=== PATIENT | male | born 1980 | race Caucasian/White ===

== ENCOUNTER 2016-06-24 22:20 | Inpatient (IN) | payer MEDICAID ==
[~2016-06-24] VITALS: Ht 165.1 cm; Wt 69.5 kg
[2016-06-24 22:37] VITALS: BP 114/71
[2016-06-24] MEDS ORDERED: ZOLPIDEM TARTRATE 10 MG TABLET PO PRN (22:45)
[2016-06-24] MEDS ORDERED: LORazepam 2 MG TABLET PO PRN (22:45)
[2016-06-24] MEDS ORDERED: HALOPERIDOL 5 MG TABLET PO PRN (22:45)
[2016-06-25] MEDS ORDERED: INFLUENZA VIRUS VACCINE QVS 2016-17 (3YR+)/PF 60 MCG/0.5 ML SYRINGE IM ONE (01:15)
[2016-06-25 08:10] VITALS: BP 110/64
[2016-06-25] MEDS: NICOTINE 21 MG/24 HOUR PATCH TD SCH (08:50)
[2016-06-25 09:31] LABS: BASOPHILS % (AUTO) 0.2 % (0.0-2.0); EOSINOPHILS % (AUTO) 2.3 % (1.0-6.0); HEMATOCRIT 48.6 % (41-53); LYMPHOCYTES # (AUTO) 1.2 K/uL (1.0-4.8); LYMPHOCYTES % (AUTO) 23.7 % (22.0-44.0); MEAN CORPUSCULAR HEMOGLOBIN 30.5 pg (26.0-34.0); MEAN CORPUSCULAR VOLUME 93 fL (80-100); MONOCYTES # (AUTO) 0.4 K/uL (0.1-1.0); MONOCYTES % (AUTO) 7.4 % (2.0-9.0); NEUTROPHILS # (AUTO) 3.4 K/uL (1.8-7.7); NEUTROPHILS % (AUTO) 66.4 % (40.0-70.0); PLATELET COUNT (AUTO) 138 K/uL (150-450); RED BLOOD CELL COUNT(AUTO) 5.24 MIL/uL (4.50-5.90); RED CELL DISTRIBUTION WIDTH 13.4 % (11.5-14.5); WHITE BLOOD COUNT (AUTO) 5.1 K/uL (4.5-11.0)
[2016-06-25 09:47] LABS: ALANINE AMINOTRANSFERASE 46 U/L (12-78); ALBUMIN 3.1 g/dL (3.4-5.0); ANION GAP 8 mmol/L (8-16); ASPARTATE AMINOTRANSFERASE 34 U/L (15-37); BILIRUBIN,TOTAL 0.4 mg/dL (0.1-1.0); CALCIUM, TOTAL 8.5 mg/dL (8.8-10.5); CARBON DIOXIDE 29 mmol/L (22-29); CHLORIDE 103 mmol/L (98-107); CHOL/HDL RATIO 1.8 (4.2-7.3); CREATININE 0.99 mg/dL (0.60-1.30); GLOMERULAR FILTR. RATE CALC > 60 mL/min (>60); POTASSIUM 3.8 mmol/L (3.5-5.1); SODIUM SERUM 140 mmol/L (136-145); TOTAL PROTEIN, SERUM 7.3 g/dL (6.4-8.2); UREA NITROGEN, BLOOD 12 mg/dL (7-18)
[2016-06-25] MEDS: BuPROPion HCL 150 MG SR TABLET PO SCH (11:15)
[2016-06-25] MEDS: ARIPiprazole 10 MG TABLET PO SCH (11:15)
[2016-06-25] MEDS: IBUPROFEN 600 MG TABLET PO PRN (16:29)
[2016-06-25 16:39] VITALS: BP 114/73
[2016-06-25] MEDS ORDERED: MAG HYDROX/AL HYDROX/SIMETH ES 30 ML SUSPENSION UDCUP PO PRN (23:30)
[2016-06-26 06:29] VITALS: BP 121/75
[2016-06-26 08:10] VITALS: BP 105/64
[2016-06-26] MEDS: NICOTINE 21 MG/24 HOUR PATCH TD SCH (09:30)
[2016-06-26] MEDS: PANTOPRAZOLE SODIUM 40 MG DR TABLET PO SCH (09:31)
[2016-06-26] MEDS: ARIPiprazole 10 MG TABLET PO SCH (09:31)
[2016-06-26] MEDS: BuPROPion HCL 150 MG SR TABLET PO SCH (09:31)
[2016-06-26 16:00] VITALS: BP 109/73
[2016-06-26] MEDS: IBUPROFEN 600 MG TABLET PO PRN (16:54)
[2016-06-27] MEDS: ARIPiprazole 10 MG TABLET PO SCH (08:46)
[2016-06-27] MEDS: NICOTINE 21 MG/24 HOUR PATCH TD SCH (08:47)
[2016-06-27] MEDS: PANTOPRAZOLE SODIUM 40 MG DR TABLET PO SCH (08:47)
[2016-06-27] MEDS: BuPROPion HCL 150 MG SR TABLET PO SCH (08:47)
[2016-06-27] MEDS ORDERED: ARIP10TA14 PO (10:48)
[2016-06-27] MEDS ORDERED: PANT40TA25 PO (10:48)
[2016-06-27] MEDS ORDERED: BUPR75 PO (10:48)
== END 2016-06-27 13:15 | disposition home or self-care (01) | DRG 753 ==
LOC: B2S 22:48 → EDSTATUS 23:09
PROVIDERS: ADMIT Psychiatry & Neurology Child & Adolescent Psychiatry; ATTEND Psychiatry & Neurology Child & Adolescent Psychiatry
DX: F31.4 Bipolar disorder, current episode depressed, severe, without psychotic features (principal); R45.851 Suicidal ideations; B19.20 Unspecified viral hepatitis C without hepatic coma; F17.200 Nicotine dependence, unspecified, uncomplicated; Z88.0 Allergy status to penicillin; Z20.6 Contact with and (suspected) exposure to human immunodeficiency virus [HIV]; Z28.21 Immunization not carried out because of patient refusal

== ENCOUNTER 2016-07-12 22:11 | Inpatient (IN) | payer MEDICAID ==
[~2016-07-12] VITALS: Ht 170.2 cm; Wt 67.6 kg
[~2016-07-12 22:11] MED LIST: ARIP10TA14 PO; BUPR75 PO; PANT40TA25 PO
[2016-07-13 01:15] VITALS: BP 108/60
[2016-07-13] MEDS ORDERED: ZOLPIDEM TARTRATE 10 MG TABLET PO PRN (02:00)
[2016-07-13] MEDS ORDERED: HALOPERIDOL 5 MG TABLET PO PRN (02:00)
[2016-07-13] MEDS ORDERED: LORazepam 2 MG TABLET PO PRN (02:00)
[2016-07-13 02:28] VITALS: BP 103/69
[2016-07-13] MEDS ORDERED: PNEUMOCOCCAL VACCINE POLYVALENT 0.5 ML VIAL [PPSV23] IM ONE (03:30)
[2016-07-13] MEDS ORDERED: INFLUENZA VIRUS VACCINE QVS 2016-17 (3YR+)/PF 60 MCG/0.5 ML SYRINGE IM ONE (03:30)
[2016-07-13] MEDS: PANTOPRAZOLE SODIUM 40 MG DR TABLET PO SCH (14:15)
[2016-07-13 16:00] VITALS: BP 113/75
[2016-07-13] MEDS: ARIPiprazole 10 MG TABLET PO SCH (16:45)
[2016-07-13] MEDS: NICOTINE 21 MG/24 HOUR PATCH TD SCH (16:46)
[2016-07-14 08:30] VITALS: BP 104/70
[2016-07-14 08:35] LABS: BASOPHILS % (AUTO) 0.2 % (0.0-2.0); EOSINOPHILS % (AUTO) 1.2 % (1.0-6.0); HEMOGLOBIN 16.5 g/dL (13.5-17.5); LYMPHOCYTES # (AUTO) 1.3 K/uL (1.0-4.8); LYMPHOCYTES % (AUTO) 16.4 % (22.0-44.0); MEAN CORPUSCULAR HEMOGLOBIN 30.5 pg (26.0-34.0); MEAN CORPUSCULAR VOLUME 92 fL (80-100); MONOCYTES # (AUTO) 0.7 K/uL (0.1-1.0); MONOCYTES % (AUTO) 9.4 % (2.0-9.0); NEUTROPHILS # (AUTO) 5.7 K/uL (1.8-7.7); NEUTROPHILS % (AUTO) 72.8 % (40.0-70.0); PLATELET COUNT (AUTO) 171 K/uL (150-450); RED BLOOD CELL COUNT(AUTO) 5.42 MIL/uL (4.50-5.90); RED CELL DISTRIBUTION WIDTH 12.8 % (11.5-14.5); WHITE BLOOD COUNT (AUTO) 7.9 K/uL (4.5-11.0)
[2016-07-14 09:00] LABS: ALANINE AMINOTRANSFERASE 37 U/L (12-78); ALBUMIN 3.2 g/dL (3.4-5.0); ANION GAP 10 mmol/L (8-16); ASPARTATE AMINOTRANSFERASE 25 U/L (15-37); BILIRUBIN,TOTAL 0.5 mg/dL (0.1-1.0); CARBON DIOXIDE 27 mmol/L (22-29); CHLORIDE 102 mmol/L (98-107); CHOL/HDL RATIO 2.9 (4.2-7.3); CREATINE KINASE, TOTAL 69 U/L (39-308); CREATININE 1.01 mg/dL (0.60-1.30); GLOMERULAR FILTR. RATE CALC > 60 mL/min (>60); SODIUM SERUM 139 mmol/L (136-145); TOTAL PROTEIN, SERUM 8.4 g/dL (6.4-8.2); UREA NITROGEN, BLOOD 11 mg/dL (7-18)
[2016-07-14] MEDS: PANTOPRAZOLE SODIUM 40 MG DR TABLET PO SCH ×2 (09:00→12:37)
[2016-07-14] MEDS: ARIPiprazole 10 MG TABLET PO SCH ×2 (09:00→12:38)
[2016-07-14] MEDS: NICOTINE 21 MG/24 HOUR PATCH TD SCH (09:00)
[2016-07-14] MEDS: BuPROPion HCL XL 150 MG ER TABLET PO SCH ×2 (09:00→12:38)
[2016-07-14 09:30] LABS: THYROID STIMULATING HORMONE 0.66 uIU/mL (0.36-3.74)
[2016-07-14 18:30] VITALS: BP 110/63
[2016-07-14] MEDS ORDERED: ALBUTEROL SULFATE HFA 90 MCG/PUFF 8 GM INHALER IH PRN (19:15)
[2016-07-14] MEDS ORDERED: BENZONATATE 100 MG CAPSULE PO PRN (19:15)
[2016-07-14] MEDS: DOXYCYCLINE 100 MG CAPSULE PO SCH (20:47)
[2016-07-15 07:12] LABS: LYMPHS % FOR CD4 COUNT 20 %; LYMPHS ABS FOR CD4 COUNT 1.5 x10E3/uL (0.7-3.1); WBC FOR CD4 COUNT 7.7 x10E3/uL (3.4-10.8)
[2016-07-15] MEDS ORDERED: MUPIROCIN CALCIUM 2% 22 GM OINTMENT NASAL SCH (09:00)
[2016-07-15] MEDS: NICOTINE 21 MG/24 HOUR PATCH TD SCH (09:00)
[2016-07-15] MEDS: PANTOPRAZOLE SODIUM 40 MG DR TABLET PO SCH (09:28)
[2016-07-15] MEDS: ARIPiprazole 10 MG TABLET PO SCH (09:28)
[2016-07-15] MEDS: DOXYCYCLINE 100 MG CAPSULE PO SCH (09:28)
[2016-07-15] MEDS: BuPROPion HCL XL 150 MG ER TABLET PO SCH (09:28)
[2016-07-15] MEDS ORDERED: DOXY150T PO (11:33)
[2016-07-15] MEDS ORDERED: MUPI1OIN5 NASAL (11:33)
[2016-07-15 12:23] LABS: HEPATITIS Bs ANTIGEN SCREEN P Negative (Negative); HEPATITIS C AB SCREEN >11.0 s/co ratio (0.0-0.9)
[2016-07-15 14:13] LABS: ABSOLUTE CD4 COUNT 203 /uL (359-1519); PERCENT CD4 CELLS 13.5 % (30.8-58.5)
[2016-07-15 17:20] LABS: HIV CONFIRM? YES (NP)
== END 2016-07-15 11:55 | disposition home or self-care (01) | DRG 753 ==
LOC: B3A 07-13 01:50
DX: F31.4 Bipolar disorder, current episode depressed, severe, without psychotic features (principal); D69.6 Thrombocytopenia, unspecified; R45.851 Suicidal ideations; K21.9 Gastro-esophageal reflux disease without esophagitis; B19.20 Unspecified viral hepatitis C without hepatic coma; F12.90 Cannabis use, unspecified, uncomplicated; F15.90 Other stimulant use, unspecified, uncomplicated; F11.90 Opioid use, unspecified, uncomplicated; F17.200 Nicotine dependence, unspecified, uncomplicated; Z20.6 Contact with and (suspected) exposure to human immunodeficiency virus [HIV]; Z79.899 Other long term (current) drug therapy; Z71.51 Drug abuse counseling and surveillance of drug abuser; Z88.0 Allergy status to penicillin; Z28.21 Immunization not carried out because of patient refusal
CPT/HCPCS: 80074; 82306; 82607; 82746; 83036; 83735; 84439; 84443; 86361; 86592; 86701; 86702; 87081; 87389; J3535

== ENCOUNTER 2016-07-14 13:21 | Emergency (ER) | payer MEDICAID, OTHER ==
[~2016-07-14] VITALS: Ht 165.1 cm; Wt 70.0 kg
[2016-07-14] MEDS ORDERED: DOXYCYCLINE 100 MG CAPSULE PO ONE (16:00)
[2016-07-14] MEDS ORDERED: BENZONATATE 100 MG CAPSULE PO ONE (16:00)
[2016-07-14] MEDS ORDERED: ALBUTEROL SULFATE HFA 90 MCG/PUFF 8 GM INHALER IH ONE (16:00)
[2016-07-14] MEDS ORDERED: KETOROLAC TROMETHAMINE 60 MG/2 ML VIAL IM ONE (16:00)
[2016-07-14 17:28] VITALS: BP 110/73
[2016-07-15] MEDS ORDERED: DOXY150T PO (11:33)
[2016-07-15] MEDS ORDERED: MUPI1OIN5 NASAL (11:33)
== END 2016-07-14 18:04 | disposition home or self-care (01) ==
LOC: EMS 13:22
DX: J40 Bronchitis, not specified as acute or chronic (principal); B19.20 Unspecified viral hepatitis C without hepatic coma; F17.210 Nicotine dependence, cigarettes, uncomplicated; Z88.0 Allergy status to penicillin
CPT/HCPCS: 71010; 93005; 94640; 96372; 99284; 99406; J1885; J3535

== ENCOUNTER 2019-07-18 08:18 | Inpatient (IN) | payer MEDICAID ==
[~2019-07-18] VITALS: Ht 165.1 cm; Wt 63.9 kg
[~2019-07-18 08:18] MED LIST changes: -ARIP10TA14 PO; +ARIP10TA8 PO; +DOXY150T5 PO; +MUPI1OIN5 NASAL; -PANT40TA25 PO
[2019-07-18 10:14] VITALS: BP 111/77
[2019-07-18] MEDS ORDERED: HALOPERIDOL 5 MG TABLET PO PRN (10:15)
[2019-07-18] MEDS: BuPROPion HCL XL 150 MG ER TABLET PO SCH (12:56)
[2019-07-18] MEDS: ARIPiprazole 15 MG TABLET PO SCH (12:56)
[2019-07-18] MEDS: NICOTINE 14 MG/24 HOUR PATCH TD SCH (14:24)
[2019-07-18] MEDS: GABAPENTIN 300 MG CAPSULE PO SCH (16:21)
[2019-07-18] MEDS ORDERED: MAGNESIUM HYDROXIDE SUSPENSION 30 ML UDCUP PO PRN (20:15)
[2019-07-18] MEDS ORDERED: ONDANSETRON HCL 4 MG TABLET PO PRN (20:15)
[2019-07-18] MEDS ORDERED: CloNIDine HCL 0.1 MG TABLET PO PRN (20:15)
[2019-07-18] MEDS ORDERED: LOPERAMIDE HCL 2 MG CAPSULE PO PRN (20:15)
[2019-07-18] MEDS ORDERED: GuaiFENesin/D-METHORPHAN [SUGAR-FREE] 200-20MG/10 ML SYRUP UDCUP PO PRN (20:15)
[2019-07-18] MEDS ORDERED: NICOTINE 14 MG/24 HOUR PATCH TD PRN (20:15)
[2019-07-18] MEDS ORDERED: DOCUSATE SODIUM 100 MG CAPSULE PO PRN (20:15)
[2019-07-18] MEDS ORDERED: PETROLATUM,WHITE 28 GM JELLY TP PRN (20:15)
[2019-07-18] MEDS ORDERED: ALBUTEROL SULFATE HFA 90 MCG/PUFF 8 GM INHALER IH PRN (20:15)
[2019-07-18] MEDS ORDERED: MAG HYDROX/AL HYDROX/SIMETH ES 30 ML SUSPENSION UDCUP PO PRN (20:15)
[2019-07-18] MEDS ORDERED: IBUPROFEN 400 MG TABLET PO PRN (20:15)
[2019-07-18] MEDS: LORazepam 2 MG TABLET PO PRN (21:03)
[2019-07-18] MEDS: ZOLPIDEM TARTRATE 10 MG TABLET PO PRN (21:03)
[2019-07-19] MEDS ORDERED: INFLUENZA VIRUS VACCINE QVS 2019-20 (3YR+)/PF 60 MCG/0.5 ML SYRINGE IM ONE (01:00)
[2019-07-19] MEDS ORDERED: PNEUMOCOCCAL VACCINE POLYVALENT 0.5 ML VIAL [PPSV23] IM ONE (01:00)
[2019-07-19] MEDS: BuPROPion HCL XL 150 MG ER TABLET PO SCH (08:08)
[2019-07-19] MEDS: ARIPiprazole 15 MG TABLET PO SCH (08:08)
[2019-07-19] MEDS: GABAPENTIN 300 MG CAPSULE PO SCH ×3 (08:09→16:52)
[2019-07-19] MEDS: NICOTINE 14 MG/24 HOUR PATCH TD SCH (08:12)
[2019-07-19] MEDS: LORazepam 2 MG TABLET PO PRN ×2 (08:15→20:35)
[2019-07-19 08:36] VITALS: BP 98/77
[2019-07-19 16:20] VITALS: BP 109/78
[2019-07-19] MEDS: ZOLPIDEM TARTRATE 10 MG TABLET PO PRN (20:36)
[2019-07-20 06:59] VITALS: BP 106/70
[2019-07-20] MEDS: ARIPiprazole 15 MG TABLET PO SCH (08:52)
[2019-07-20] MEDS: BuPROPion HCL XL 150 MG ER TABLET PO SCH (08:52)
[2019-07-20] MEDS: GABAPENTIN 300 MG CAPSULE PO SCH ×3 (08:53→16:47)
[2019-07-20] MEDS: NICOTINE 14 MG/24 HOUR PATCH TD SCH ×2 (08:57→10:00)
[2019-07-20 16:17] VITALS: BP 109/59
[2019-07-20] MEDS: LORazepam 2 MG TABLET PO PRN (17:50)
[2019-07-21 04:43] VITALS: BP 104/72
[2019-07-21] MEDS: BuPROPion HCL XL 150 MG ER TABLET PO SCH (08:33)
[2019-07-21] MEDS: ARIPiprazole 15 MG TABLET PO SCH (08:33)
[2019-07-21] MEDS: GABAPENTIN 300 MG CAPSULE PO SCH ×3 (08:33→16:49)
[2019-07-21] MEDS ORDERED: BuPROPion HCL XL 150 MG ER TABLET PO ONE (12:30)
[2019-07-21 16:14] VITALS: BP 101/61
[2019-07-21] MEDS: ACETAMINOPHEN 325 MG TABLET PO PRN (16:49)
[2019-07-21] MEDS ORDERED: GABA-533 PO (22:37)
[2019-07-21] MEDS ORDERED: BUPR-93 PO (22:39)
[2019-07-22 03:15] VITALS: BP 110/73
[2019-07-22] MEDS: ACETAMINOPHEN 325 MG TABLET PO PRN ×2 (03:15→11:48)
[2019-07-22] MEDS: NICOTINE 14 MG/24 HOUR PATCH TD SCH (09:00)
[2019-07-22] MEDS ORDERED: BuPROPion HCL XL 150 MG ER TABLET PO SCH (09:00)
[2019-07-22] MEDS: GABAPENTIN 300 MG CAPSULE PO SCH ×2 (09:19→13:04)
[2019-07-22] MEDS: ARIPiprazole 15 MG TABLET PO SCH (09:19)
== END 2019-07-22 13:25 | disposition home or self-care (01) | DRG 750 ==
LOC: B3A 10:58
PROVIDERS: ADMIT Psychiatry & Neurology Psychiatry; ATTEND Psychiatry & Neurology Psychiatry
DX: F20.9 Schizophrenia, unspecified (principal); R45.851 Suicidal ideations; G62.9 Polyneuropathy, unspecified; Z59.0 Homelessness; F12.90 Cannabis use, unspecified, uncomplicated; F15.90 Other stimulant use, unspecified, uncomplicated; Z21 Asymptomatic human immunodeficiency virus [HIV] infection status; B19.20 Unspecified viral hepatitis C without hepatic coma; F11.90 Opioid use, unspecified, uncomplicated; F10.10 Alcohol abuse, uncomplicated; Y90.9 Presence of alcohol in blood, level not specified; K21.9 Gastro-esophageal reflux disease without esophagitis; F41.9 Anxiety disorder, unspecified; R53.83 Other fatigue; F32.9 Major depressive disorder, single episode, unspecified; Z28.21 Immunization not carried out because of patient refusal
CPT/HCPCS: 90686; 90732

== ENCOUNTER 2019-08-18 17:57 | Inpatient (IN) | payer MEDICAID ==
[~2019-08-18 17:57] MED LIST changes: +BUPR-93 PO; -BUPR75 PO; -DOXY150T5 PO; +GABA-533 PO; -MUPI1OIN5 NASAL
[2019-08-18 19:21] VITALS: BP 100/60
[2019-08-19 05:58] VITALS: BP 106/63
[2019-08-19] MEDS: ARIPiprazole 15 MG TABLET PO SCH (12:11)
[2019-08-19] MEDS: BuPROPion HCL XL 150 MG ER TABLET PO SCH (12:11)
[2019-08-19] MEDS: LORazepam 2 MG TABLET PO PRN ×2 (12:11→16:26)
[2019-08-19] MEDS ORDERED: DIPHENOXYLATE/ATROP 2.5-0.025 MG TABLET PO PRN (12:45)
[2019-08-19] MEDS: GABAPENTIN 300 MG CAPSULE PO SCH ×2 (13:17→16:26)
[2019-08-20] MEDS: HALOPERIDOL 5 MG TABLET PO PRN (09:03)
[2019-08-20] MEDS: GABAPENTIN 300 MG CAPSULE PO SCH ×3 (09:03→16:56)
[2019-08-20] MEDS: ARIPiprazole 15 MG TABLET PO SCH (09:03)
[2019-08-20] MEDS: BuPROPion HCL XL 150 MG ER TABLET PO SCH (09:03)
[2019-08-20] MEDS: LORazepam 2 MG TABLET PO PRN ×3 (09:03→20:59)
[2019-08-20] MEDS: ZOLPIDEM TARTRATE 10 MG TABLET PO PRN (20:59)
[2019-08-21 08:06] VITALS: BP 111/65
[2019-08-21] MEDS: GABAPENTIN 300 MG CAPSULE PO SCH ×3 (08:14→16:34)
[2019-08-21] MEDS: BuPROPion HCL XL 150 MG ER TABLET PO SCH (08:15)
[2019-08-21] MEDS: ARIPiprazole 15 MG TABLET PO SCH (08:15)
[2019-08-21 16:01] VITALS: BP 110/68
[2019-08-21] MEDS: LORazepam 2 MG TABLET PO PRN ×2 (16:34→20:38)
[2019-08-21] MEDS: HALOPERIDOL 5 MG TABLET PO PRN (19:20)
[2019-08-21] MEDS: ZOLPIDEM TARTRATE 10 MG TABLET PO PRN (20:38)
[2019-08-22] MEDS: ARIPiprazole 15 MG TABLET PO SCH (08:38)
[2019-08-22] MEDS: GABAPENTIN 300 MG CAPSULE PO SCH ×3 (08:38→16:52)
[2019-08-22] MEDS: BuPROPion HCL XL 150 MG ER TABLET PO SCH (08:38)
[2019-08-22] MEDS: LORazepam 2 MG TABLET PO PRN (08:40)
[2019-08-22] MEDS: OLANZapine 5 MG TABLET PO SCH ×2 (08:45→16:53)
[2019-08-22] MEDS ORDERED: DiphenhydrAMINE HCL 50 MG/ML VIAL ONE (16:34)
[2019-08-22] MEDS ORDERED: HALOPERIDOL LACTATE 5 MG/ML VIAL ONE (16:34)
[2019-08-22] MEDS ORDERED: LORazepam 2 MG/ML VIAL ONE (16:34)
[2019-08-22] MEDS ORDERED: DiphenhydrAMINE HCL 50 MG/ML VIAL IM ONE (16:45)
[2019-08-22] MEDS ORDERED: LORazepam 2 MG/ML VIAL IM ONE (16:45)
[2019-08-22] MEDS ORDERED: HALOPERIDOL LACTATE 5 MG/ML VIAL IM ONE (16:45)
[2019-08-23] MEDS: HALOPERIDOL 5 MG TABLET PO PRN (08:57)
[2019-08-23] MEDS: ARIPiprazole 15 MG TABLET PO SCH (08:57)
[2019-08-23] MEDS: LORazepam 2 MG TABLET PO PRN (08:57)
[2019-08-23] MEDS: OLANZapine 5 MG TABLET PO SCH (08:57)
[2019-08-23] MEDS: GABAPENTIN 300 MG CAPSULE PO SCH ×2 (08:57→13:00)
[2019-08-23] MEDS: BuPROPion HCL XL 150 MG ER TABLET PO SCH (08:57)
[2019-08-23] MEDS ORDERED: OLAN5TAB2 PO (10:25)
[2019-08-23] MEDS ORDERED: BUPR-93 PO (10:35)
== END 2019-08-23 13:45 | disposition home or self-care (01) | DRG 750 ==
LOC: B3A 19:20
PROVIDERS: ADMIT Psychiatry & Neurology Psychiatry; ATTEND Psychiatry & Neurology Psychiatry
DX: F20.9 Schizophrenia, unspecified (principal); R45.851 Suicidal ideations; Z21 Asymptomatic human immunodeficiency virus [HIV] infection status; F10.10 Alcohol abuse, uncomplicated; F19.20 Other psychoactive substance dependence, uncomplicated; K21.9 Gastro-esophageal reflux disease without esophagitis; F17.210 Nicotine dependence, cigarettes, uncomplicated; Z86.14 Personal history of Methicillin resistant Staphylococcus aureus infection; Z59.0 Homelessness; Z91.5 Personal history of self-harm
CPT/HCPCS: 87081; J1200; J1630; J2060

== ENCOUNTER 2019-08-27 15:44 | Inpatient (IN) | payer MEDICAID ==
[~2019-08-27] VITALS: Ht 165.1 cm; Wt 64.9 kg
[~2019-08-27 15:44] MED LIST changes: +OLAN5TAB2 PO
[2019-08-27] MEDS ORDERED: GABA-531 PO (20:03)
[2019-08-27 22:43] VITALS: BP 116/71
[2019-08-27] MEDS ORDERED: HALOPERIDOL 5 MG TABLET PO PRN (22:45)
[2019-08-27] MEDS ORDERED: NICOTINE 14 MG/24 HOUR PATCH TD PRN (23:15)
[2019-08-27] MEDS ORDERED: PNEUMOCOCCAL VACCINE POLYVALENT 0.5 ML VIAL [PPSV23] IM ONE (23:30)
[2019-08-28 06:54] LABS: BASOPHILS % (AUTO) 0.2 % (0.0-2.0); HEMATOCRIT 52.4 % (41-53); HEMOGLOBIN 17.6 g/dL (13.5-17.5); LYMPHOCYTES # (AUTO) 1.3 K/uL (1.0-4.8); MEAN CORPUSCULAR HEMOGLOBIN 30.3 pg (26.0-34.0); MEAN CORPUSCULAR HGB CONC 33.6 G/dL (31.0-37.0); MEAN CORPUSCULAR VOLUME 90 fL (80-100); MONOCYTES # (AUTO) 0.5 K/uL (0.1-1.0); MONOCYTES % (AUTO) 9.1 % (2.0-9.0); NEUTROPHILS # (AUTO) 3.1 K/uL (1.8-7.7); NEUTROPHILS % (AUTO) 61.7 % (40.0-70.0); RED BLOOD CELL COUNT(AUTO) 5.83 MIL/uL (4.50-5.90); RED CELL DISTRIBUTION WIDTH 13.5 % (11.5-14.5)
[2019-08-28 07:13] LABS: ALANINE AMINOTRANSFERASE 65 U/L (12-78); ALBUMIN 3.4 g/dL (3.4-5.0); ALKALINE PHOSPHATASE 116 U/L (46-116); ANION GAP 6 mmol/L (8-16); ASPARTATE AMINOTRANSFERASE 43 U/L (15-37); BILIRUBIN,TOTAL 0.7 mg/dL (0.1-1.0); CALCIUM, TOTAL 8.8 mg/dL (8.8-10.5); CARBON DIOXIDE 27 mmol/L (22-29); CHLORIDE 104 mmol/L (98-107); CREATININE 0.88 mg/dL (0.60-1.30); GLOMERULAR FILTR. RATE CALC > 60 mL/min (>60); GLUCOSE,RANDOM 90 mg/dL (70-110); POTASSIUM 3.8 mmol/L (3.5-5.1); SODIUM SERUM 137 mmol/L (136-145); TOTAL PROTEIN, SERUM 8.1 g/dL (6.4-8.2); UREA NITROGEN, BLOOD 10 mg/dL (7-18)
[2019-08-28 08:13] LABS: APPEARANCE,URINE CLEAR (CLEAR); GLUCOSE, URINE (UA) NEGATIVE (NEGATIVE); KETONES,URINE NEGATIVE (NEGATIVE); LEUKOCYTE ESTERASE ,URINE NEGATIVE (NEGATIVE); NITRATE,URINE NEGATIVE (NEGATIVE); OCCULT BLOOD,URINE NEGATIVE (NEGATIVE); PROTEIN,URINE NEGATIVE (NEGATIVE); UROBILINOGEN,URINE 0.2 mg/dL (<=1.0)
[2019-08-28 08:17] LABS: BILIRUBIN,URINE PRELIM. POSITIVE (NEGATIVE)
[2019-08-28 08:19] LABS: AMPHET/METH SCREEN,URINE POSITIVE (NEGATIVE); BARBITURATE SCREEN, URINE NEGATIVE (NEGATIVE); BENZODIAZEPINES SCREEN,URINE NEGATIVE (NEGATIVE); CANNABINOID SCREEN,URINE POSITIVE (NEGATIVE); COCAINE SCREEN,URINE NEGATIVE (NEGATIVE); METHADONE SCREEN, URINE NEGATIVE (NEGATIVE); OPIATE SCREEN,URINE POSITIVE (NEGATIVE); PHENCYCLIDINE SCREEN,URINE NEGATIVE (NEGATIVE)
[2019-08-28 08:22] VITALS: BP 101/57
[2019-08-28 08:29] LABS: PLATELET COUNT (AUTO) 81 K/uL (150-450)
[2019-08-28 08:30] LABS: PLATELET MORPHOLOGY COMMENT LARGE PLTS PRESENT
[2019-08-28] MEDS: GABAPENTIN 300 MG CAPSULE PO SCH ×3 (10:16→17:38)
[2019-08-28] MEDS: OLANZapine 5 MG TABLET PO SCH ×2 (10:16→17:38)
[2019-08-28] MEDS: ARIPiprazole 15 MG TABLET PO SCH (10:16)
[2019-08-28] MEDS: BuPROPion HCL XL 150 MG ER TABLET PO SCH (10:16)
[2019-08-28] MEDS ORDERED: MAGNESIUM HYDROXIDE SUSPENSION 30 ML UDCUP PO PRN (11:30)
[2019-08-28] MEDS ORDERED: ALBUTEROL SULFATE HFA 90 MCG/PUFF 8 GM INHALER IH PRN (11:30)
[2019-08-28] MEDS ORDERED: IBUPROFEN 400 MG TABLET PO PRN (11:30)
[2019-08-28] MEDS ORDERED: CloNIDine HCL 0.1 MG TABLET PO PRN (11:30)
[2019-08-28] MEDS ORDERED: ONDANSETRON HCL 4 MG TABLET PO PRN (11:30)
[2019-08-28] MEDS ORDERED: GuaiFENesin/D-METHORPHAN [SUGAR-FREE] 200-20MG/10 ML SYRUP UDCUP PO PRN (11:30)
[2019-08-28] MEDS ORDERED: DOCUSATE SODIUM 100 MG CAPSULE PO PRN (11:30)
[2019-08-28] MEDS ORDERED: MAG HYDROX/AL HYDROX/SIMETH ES 30 ML SUSPENSION UDCUP PO PRN (11:30)
[2019-08-28] MEDS ORDERED: PETROLATUM,WHITE 28 GM JELLY TP PRN (11:30)
[2019-08-28] MEDS ORDERED: NICOTINE 14 MG/24 HOUR PATCH TD PRN (11:30)
[2019-08-28] MEDS ORDERED: LOPERAMIDE HCL 2 MG CAPSULE PO PRN (11:30)
[2019-08-28] MEDS ORDERED: ACETAMINOPHEN 325 MG TABLET PO PRN (11:30)
[2019-08-28] MEDS ORDERED: GABAPENTIN 300 MG CAPSULE PO SCH (13:00)
[2019-08-28 21:18] VITALS: BP 99/65
[2019-08-29 08:00] VITALS: BP_SYST 88; BP_SYST 99; BP_DIAS 50; BP_DIAS 61
[2019-08-29] MEDS: BuPROPion HCL XL 150 MG ER TABLET PO SCH ×2 (08:45→08:56)
[2019-08-29] MEDS: GABAPENTIN 300 MG CAPSULE PO SCH ×3 (08:45→16:02)
[2019-08-29] MEDS: ARIPiprazole 15 MG TABLET PO SCH (08:46)
[2019-08-29] MEDS: OLANZapine 5 MG TABLET PO SCH ×2 (08:46→16:01)
[2019-08-29 16:30] VITALS: BP 104/62
[2019-08-30] MEDS: BuPROPion HCL XL 150 MG ER TABLET PO SCH (08:41)
[2019-08-30] MEDS: ARIPiprazole 15 MG TABLET PO SCH (08:41)
[2019-08-30] MEDS: GABAPENTIN 300 MG CAPSULE PO SCH ×3 (08:41→15:57)
[2019-08-30] MEDS: OLANZapine 5 MG TABLET PO SCH ×2 (08:41→15:56)
[2019-08-30 10:34] VITALS: BP 103/66
[2019-08-30 20:36] VITALS: BP 111/69
[2019-08-31] MEDS: ARIPiprazole 15 MG TABLET PO SCH (08:06)
[2019-08-31] MEDS: GABAPENTIN 300 MG CAPSULE PO SCH ×3 (08:06→16:18)
[2019-08-31] MEDS: BuPROPion HCL XL 150 MG ER TABLET PO SCH (08:07)
[2019-08-31] MEDS: OLANZapine 5 MG TABLET PO SCH ×2 (08:07→16:18)
[2019-08-31 17:55] VITALS: BP 115/70
[2019-08-31] MEDS: ZOLPIDEM TARTRATE 10 MG TABLET PO PRN (20:18)
[2019-09-01] MEDS: GABAPENTIN 300 MG CAPSULE PO SCH ×4 (08:11→18:37)
[2019-09-01] MEDS: BuPROPion HCL XL 150 MG ER TABLET PO SCH (08:11)
[2019-09-01] MEDS: OLANZapine 5 MG TABLET PO SCH ×2 (08:11→18:38)
[2019-09-01] MEDS: ARIPiprazole 15 MG TABLET PO SCH (08:12)
[2019-09-01] MEDS: LORazepam 2 MG TABLET PO PRN ×3 (08:12→23:53)
[2019-09-01 09:45] VITALS: BP 127/95
[2019-09-01 19:54] VITALS: BP 122/88
[2019-09-01] MEDS: ZOLPIDEM TARTRATE 10 MG TABLET PO PRN (23:53)
[2019-09-02 00:49] VITALS: BP 109/69
[2019-09-02] MEDS ORDERED: HALOPERIDOL LACTATE 5 MG/ML VIAL IM ONE (01:15)
[2019-09-02] MEDS ORDERED: LORazepam 2 MG/ML VIAL IM ONE (01:15)
[2019-09-02] MEDS: ARIPiprazole 15 MG TABLET PO SCH (09:00)
[2019-09-02] MEDS: BuPROPion HCL XL 150 MG ER TABLET PO SCH (09:00)
[2019-09-02] MEDS: GABAPENTIN 300 MG CAPSULE PO SCH ×3 (09:00→16:25)
[2019-09-02] MEDS: OLANZapine 10 MG TABLET PO SCH ×2 (09:00→16:26)
[2019-09-02 16:00] VITALS: BP 92/65
[2019-09-02] MEDS ORDERED: BENZOCAINE 10% 7 GM GEL TP PRN (17:00)
[2019-09-03] MEDS: GABAPENTIN 300 MG CAPSULE PO SCH ×2 (09:00→13:00)
[2019-09-03] MEDS: OLANZapine 10 MG TABLET PO SCH (09:00)
[2019-09-03] MEDS: ARIPiprazole 15 MG TABLET PO SCH (09:00)
[2019-09-03] MEDS: BuPROPion HCL XL 150 MG ER TABLET PO SCH (09:00)
== END 2019-09-03 14:10 | disposition home or self-care (01) | DRG 885 ==
LOC: 3EC 21:15
PROVIDERS: ADMIT Psychiatry & Neurology Psychiatry; ATTEND Psychiatry & Neurology Psychiatry
DX: F20.0 Paranoid schizophrenia (principal); B19.20 Unspecified viral hepatitis C without hepatic coma; R45.851 Suicidal ideations; F17.210 Nicotine dependence, cigarettes, uncomplicated; Z28.21 Immunization not carried out because of patient refusal; F10.10 Alcohol abuse, uncomplicated; F32.9 Major depressive disorder, single episode, unspecified; Z91.5 Personal history of self-harm; I95.9 Hypotension, unspecified
CPT/HCPCS: 80307; 87081; J1630; J2060

== ENCOUNTER 2019-09-06 01:15 | Inpatient (IN) | payer MEDICAID, OTHER ==
[~2019-09-06] VITALS: Ht 165.1 cm; Wt 64.3 kg
[~2019-09-06 01:15] MED LIST changes: +GABA-531 PO; -GABA-533 PO
[2019-09-06] MEDS ORDERED: ESOM20CA31 PO (01:37)
[2019-09-06] MEDS ORDERED: ALPR1TAB7 PO (01:37)
[2019-09-06 01:44] LABS: BASOPHILS % (AUTO) 0.4 % (0.0-2.0); EOSINOPHILS % (AUTO) 2.8 % (1.0-6.0); HEMATOCRIT 49.8 % (41-53); HEMOGLOBIN 16.7 g/dL (13.5-17.5); LYMPHOCYTES # (AUTO) 1.4 K/uL (1.0-4.8); LYMPHOCYTES % (AUTO) 20.5 % (22.0-44.0); MEAN CORPUSCULAR HEMOGLOBIN 30.1 pg (26.0-34.0); MEAN CORPUSCULAR HGB CONC 33.5 G/dL (31.0-37.0); MEAN CORPUSCULAR VOLUME 90 fL (80-100); MONOCYTES # (AUTO) 0.9 K/uL (0.1-1.0); MONOCYTES % (AUTO) 13.4 % (2.0-9.0); NEUTROPHILS # (AUTO) 4.2 K/uL (1.8-7.7); NEUTROPHILS % (AUTO) 62.9 % (40.0-70.0); RED BLOOD CELL COUNT(AUTO) 5.55 MIL/uL (4.50-5.90); RED CELL DISTRIBUTION WIDTH 13.7 % (11.5-14.5)
[2019-09-06 01:46] LABS: ANION GAP 10 mmol/L (8-16); CALCIUM, TOTAL 9.3 mg/dL (8.8-10.5); CARBON DIOXIDE 26 mmol/L (22-29); CHLORIDE 99 mmol/L (98-107); CREATININE 0.98 mg/dL (0.60-1.30); GLOMERULAR FILTR. RATE CALC > 60 mL/min (>60); GLUCOSE,RANDOM 93 mg/dL (70-110); POTASSIUM 3.5 mmol/L (3.5-5.1); SODIUM SERUM 135 mmol/L (136-145); UREA NITROGEN, BLOOD 25 mg/dL (7-18)
[2019-09-06 01:52] LABS: ALANINE AMINOTRANSFERASE 102 U/L (12-78); ALBUMIN 4.3 g/dL (3.4-5.0); ALKALINE PHOSPHATASE 123 U/L (46-116); ASPARTATE AMINOTRANSFERASE 68 U/L (15-37)
[2019-09-06 01:59] LABS: PLATELET COUNT (AUTO) 102 K/uL (150-450); PLATELET MORPHOLOGY COMMENT LARGE PLTS PRESENT
[2019-09-06] MEDS ORDERED: ZOLPIDEM TARTRATE 10 MG TABLET PO PRN (02:15)
[2019-09-06] MEDS ORDERED: HALOPERIDOL 5 MG TABLET PO PRN (02:15)
[2019-09-06 02:18] LABS: AMPHET/METH SCREEN,URINE POSITIVE (NEGATIVE); BARBITURATE SCREEN, URINE NEGATIVE (NEGATIVE); BENZODIAZEPINES SCREEN,URINE NEGATIVE (NEGATIVE); CANNABINOID SCREEN,URINE POSITIVE (NEGATIVE); COCAINE SCREEN,URINE NEGATIVE (NEGATIVE); METHADONE SCREEN, URINE NEGATIVE (NEGATIVE); OPIATE SCREEN,URINE NEGATIVE (NEGATIVE)
[2019-09-06 02:19] LABS: PHENCYCLIDINE SCREEN,URINE NEGATIVE (NEGATIVE)
[2019-09-06 04:37] VITALS: BP 104/72
[2019-09-06] MEDS ORDERED: PNEUMOCOCCAL VACCINE POLYVALENT 0.5 ML VIAL [PPSV23] IM ONE (05:00)
[2019-09-06 08:30] VITALS: BP 107/68
[2019-09-06] MEDS: BACITRACIN 28.4 GM OINTMENT TP SCH ×2 (10:01→16:11)
[2019-09-06] MEDS: BuPROPion HCL XL 150 MG ER TABLET PO SCH (13:36)
[2019-09-06] MEDS: ARIPiprazole 15 MG TABLET PO SCH (13:36)
[2019-09-06] MEDS: OLANZapine 10 MG TABLET PO SCH ×2 (13:44→16:11)
[2019-09-06] MEDS: GABAPENTIN 300 MG CAPSULE PO SCH ×2 (13:44→16:11)
[2019-09-06 16:06] VITALS: BP 121/62
[2019-09-07 00:55] VITALS: BP 93/76
[2019-09-07 08:07] LABS: CHOL/HDL RATIO 2.4 (4.2-7.3)
[2019-09-07] MEDS ORDERED: ONDANSETRON HCL 4 MG TABLET PO PRN (08:30)
[2019-09-07] MEDS ORDERED: MAGNESIUM HYDROXIDE SUSPENSION 30 ML UDCUP PO PRN (08:30)
[2019-09-07] MEDS ORDERED: IBUPROFEN 400 MG TABLET PO PRN (08:30)
[2019-09-07] MEDS ORDERED: CloNIDine HCL 0.1 MG TABLET PO PRN (08:30)
[2019-09-07] MEDS ORDERED: LOPERAMIDE HCL 2 MG CAPSULE PO PRN (08:30)
[2019-09-07] MEDS ORDERED: PETROLATUM,WHITE 28 GM JELLY TP PRN (08:30)
[2019-09-07] MEDS ORDERED: DOCUSATE SODIUM 100 MG CAPSULE PO PRN (08:30)
[2019-09-07] MEDS ORDERED: NICOTINE 14 MG/24 HOUR PATCH TD PRN (08:30)
[2019-09-07] MEDS ORDERED: ACETAMINOPHEN 325 MG TABLET PO PRN (08:30)
[2019-09-07] MEDS ORDERED: GuaiFENesin/D-METHORPHAN [SUGAR-FREE] 200-20MG/10 ML SYRUP UDCUP PO PRN (08:30)
[2019-09-07] MEDS ORDERED: ALBUTEROL SULFATE HFA 90 MCG/PUFF 8 GM INHALER IH PRN (08:30)
[2019-09-07] MEDS ORDERED: MAG HYDROX/AL HYDROX/SIMETH ES 30 ML SUSPENSION UDCUP PO PRN (08:30)
[2019-09-07] MEDS: GABAPENTIN 300 MG CAPSULE PO SCH ×3 (08:59→16:24)
[2019-09-07] MEDS: OLANZapine 10 MG TABLET PO SCH ×2 (09:00→16:24)
[2019-09-07] MEDS: BuPROPion HCL XL 150 MG ER TABLET PO SCH (09:00)
[2019-09-07] MEDS: ARIPiprazole 15 MG TABLET PO SCH (09:00)
[2019-09-07 09:10] VITALS: BP 91/51
[2019-09-07] MEDS: BACITRACIN 28.4 GM OINTMENT TP SCH ×2 (09:46→16:24)
[2019-09-07 16:00] VITALS: BP 104/74
[2019-09-07] MEDS: LORazepam 2 MG TABLET PO PRN ×2 (16:24→20:28)
[2019-09-08] MEDS: BACITRACIN 28.4 GM OINTMENT TP SCH ×2 (09:00→17:00)
[2019-09-08] MEDS: GABAPENTIN 300 MG CAPSULE PO SCH ×3 (09:34→17:00)
[2019-09-08] MEDS: ARIPiprazole 15 MG TABLET PO SCH (09:35)
[2019-09-08] MEDS: BuPROPion HCL XL 150 MG ER TABLET PO SCH (09:35)
[2019-09-08] MEDS: OLANZapine 10 MG TABLET PO SCH ×2 (09:35→17:00)
[2019-09-08] MEDS ORDERED: HALOPERIDOL LACTATE 5 MG/ML VIAL IM ONE ×2 (14:00→14:15)
[2019-09-08] MEDS ORDERED: LORazepam 2 MG/ML VIAL IM ONE ×2 (14:00→14:15)
[2019-09-08] MEDS ORDERED: DiphenhydrAMINE HCL 50 MG/ML VIAL IM ONE (14:15)
[2019-09-09] MEDS: GABAPENTIN 300 MG CAPSULE PO SCH ×2 (10:33→13:24)
[2019-09-09] MEDS: BuPROPion HCL XL 150 MG ER TABLET PO SCH (10:33)
[2019-09-09] MEDS: OLANZapine 10 MG TABLET PO SCH (10:33)
[2019-09-09] MEDS: ARIPiprazole 15 MG TABLET PO SCH (10:33)
[2019-09-09] MEDS: BACITRACIN 28.4 GM OINTMENT TP SCH (10:37)
[2019-09-09] MEDS ORDERED: OLAN10TA3 PO (13:15)
== END 2019-09-09 14:46 | disposition home or self-care (01) | DRG 750 ==
LOC: EMS 01:15 → B3A 03:00
PROVIDERS: ADMIT Psychiatry & Neurology Psychiatry; ATTEND Psychiatry & Neurology Psychiatry
DX: F20.0 Paranoid schizophrenia (principal); B20 Human immunodeficiency virus [HIV] disease; R45.851 Suicidal ideations; F10.10 Alcohol abuse, uncomplicated; F15.10 Other stimulant abuse, uncomplicated; F11.90 Opioid use, unspecified, uncomplicated; F17.210 Nicotine dependence, cigarettes, uncomplicated; F12.10 Cannabis abuse, uncomplicated; K75.9 Inflammatory liver disease, unspecified; Z88.8 Allergy status to other drugs, medicaments and biological substances; Z88.0 Allergy status to penicillin; Z91.013 Allergy to seafood; Z59.0 Homelessness
CPT/HCPCS: 87081; G0480; J1630; J2060